=== PATIENT | male | born 1950 | race Two or more races ===

== ENCOUNTER 2016-08-22 04:42 | Inpatient (IN) | payer MEDICARE, BC ==
[~2016-08-22] VITALS: Ht 167.6 cm; Wt 62.1 kg
[2016-08-22] VITALS (9 sets, daily range): BP systolic 111–129; BP diastolic 52–71
[2016-08-22] MEDS ORDERED: ADDERALL 5 MG TA5 MG ORAL (05:00)
[2016-08-22] MEDS ORDERED: ASPIRIN81 MG ORAL (05:00)
[2016-08-22] MEDS ORDERED: ANDROGEL1.25 GM TD (05:00)
[2016-08-22] MEDS ORDERED: PLAVIX75 MG ORAL (05:00)
[2016-08-22] MEDS ORDERED: AMBIEN5 MG ORAL (05:00)
[2016-08-22] MEDS ORDERED: LAMICTAL25 MG ORAL (05:00)
[2016-08-22 05:15] LABS: BASOPHILS % (AUTO) 0.4 % (0.0-2.0); EOSINOPHILS % (AUTO) 0.6 % (0.0-3.0); LYMPHOCYTES % (AUTO) 11.8 % (20.0-45.0); MEAN CORPUSCULAR HEMOGLOBIN 32.4 PG (27.0-31.0); MEAN CORPUSCULAR HGB CONC 33.6 G/DL (32.0-36.0); MEAN CORPUSCULAR VOLUME 97 FL (80-99); MEAN PLATELET VOLUME 10.2 FL (6.5-10.1); MONOCYTES % (AUTO) 2.8 % (1.0-10.0); NEUTROPHILS % (AUTO) 84.4 % (45.0-75.0); PLATELET COUNT 225 K/UL (150-450); RED BLOOD COUNT 5.88 M/UL (4.70-6.10); RED CELL DISTRIBUTION WIDTH 12.3 % (11.6-14.8); WHITE BLOOD COUNT 12.4 K/UL (4.8-10.8)
[2016-08-22] MEDS ORDERED: Mylanta II UD 30ml ORAL ONE (05:15)
[2016-08-22] MEDS ORDERED: Famotidine 20 MG/ 2ML VIAL IVP ONE (05:15)
[2016-08-22] MEDS ORDERED: Dicyclomine HCl 10mg/5ml oral soln ORAL ONE (05:15)
[2016-08-22] MEDS ORDERED: Lidocaine 2% Visc 15ml soln ORAL ONE (05:15)
[2016-08-22 05:26] LABS: ALBUMIN/GLOBULIN RATIO 1.5 (1.0-2.7); CALCIUM 9.6 mg/dL (8.6-10.2); CREATININE 1.3 mg/dL (0.7-1.2); GLOMERULAR FILTRATION RATE 55.1 mL/min (>60); POTASSIUM 3.8 mEQ/L (3.4-4.9); TOTAL PROTEIN 7.4 g/dL (6.6-8.7); TROPONIN I < 0.30 ng/mL (<=0.30)
[2016-08-22 05:36] LABS: CKMB 4.6 ng/mL (< 6.7)
[2016-08-22] MEDS ORDERED: Morphine Sulfate 4mg/ml Inj IVP ONE (06:00)
--- NOTE | 2016-08-22 06:34 | Emergency Room Report ---
History of Present Illness General Chief Complaint: Abdominal Pain Source: Patient (RAQUEL ALVAREZ M.D.) Present Illness HPI 66-year-old male presents ED for evaluation. Patient states since last night he been having abdominal pain with vomiting. Pain is epigastric, 10 out of 10, sharp. Nonradiating. Notes multiple episodes of vomiting. Denies chest pain or shortness of breath. Denies fevers or chills. Patient states he guarded taking Zyrtec 2 days ago for treatment of an allergic reaction. Was taking niacin for skin cancer and developed an allergic reaction to the niacin. No other aggravating relieving factors. Denies any other associated symptom (RAQUEL ALVAREZ M.D.) Allergies: Coded Allergies: PENICILLINS (Verified Allergy, Unknown, 08/22/16) Patient History Past Medical History: CVA/TIA Past Surgical History: none Pertinent Family History: none Social History: Denies: alcohol use, drug use, smoking Immunizations: UTD Reviewed Nursing Documentation: PMH: Agreed, PSxH: Agreed (RAQUEL ALVAREZ M.D.) Nursing Documentation-PMH Hx Cerebrovascular Accident: Yes - STROKE 12 YEARS AGO (RAQUEL ALVAREZ M.D.) Review of Systems All Other Systems: negative except mentioned in HPI (RAQUEL ALVAREZ M.D.) Physical Exam Vital Signs Date Time Temp Pulse Resp B/P Pulse Ox O2 Delivery O2 Flow Rate FiO2 08/22/16 04:47 96.4 92 18 143/78 100 08/22/16 05:28 Room Air Sp02 EP Interpretation: reviewed, normal General Appearance: no apparent distress, alert, GCS 15, non-toxic Head: normocephalic, atraumatic Eyes: bilateral eye PERRL, bilateral eye normal inspection ENT: hearing grossly normal, normal pharynx, no angioedema, normal voice Neck: full range of motion, supple/symm/no masses Respiratory: chest non-tender, lungs clear, normal breath sounds, speaking full sentences Cardiovascular #1: regular rate, rhythm, no edema Cardiovascular #2: 2+ carotid (R), 2+ carotid (L), 2+ radial (R), 2+ radial (L) , 2+ dorsalis pedis (R), 2+ dorsalis pedis (L) Gastrointestinal: normal bowel sounds, soft, non-distended, no guarding, no rebound, tenderness - epigastric Rectal: deferred Genitourinary: normal inspection, no CVA tenderness Musculoskeletal: back normal, gait/station normal, normal range of motion, non- tender Neurologic: alert, oriented x3, responsive, motor strength/tone normal, sensory intact, speech normal Psychiatric: judgement/insight normal, memory normal, mood/affect normal, no suicidal/homicidal ideation Reflexes: 3+ bicep (R), 3+ bicep (L), 3+ tricep (R), 3+ tricep (L), 3+ knee (R) , 3+ knee (L) Skin: normal color, no rash, warm/dry, well hydrated Lymphatic: no adenopathy (RAQUEL ALVAREZ M.D.) Medical Decision Making Diagnostic Impression: Primary Impression: Abdominal pain Qualified Codes: R10.13 - Epigastric pain Additional Impressions: Status post CVA History of mitral valve prosthesis Labs Test 08/22/16 05:03 White Blood Count 12.4 K/UL (4.8-10.8) Red Blood Count 5.88 M/UL (4.70-6.10) Hemoglobin 19.0 G/DL (14.2-18.0) Hematocrit 56.8 % (42.0-52.0) Mean Corpuscular Volume 97 FL (80-99) Mean Corpuscular Hemoglobin 32.4 PG (27.0-31.0) Mean Corpuscular Hemoglobin Concent 33.6 G/DL (32.0-36.0) Red Cell Distribution Width 12.3 % (11.6-14.8) Platelet Count 225 K/UL (150-450) Mean Platelet Volume 10.2 FL (6.5-10.1) Neutrophils (%) (Auto) 84.4 % (45.0-75.0) Lymphocytes (%) (Auto) 11.8 % (20.0-45.0) Monocytes (%) (Auto) 2.8 % (1.0-10.0) Eosinophils (%) (Auto) 0.6 % (0.0-3.0) Basophils (%) (Auto) 0.4 % (0.0-2.0) Sodium Level 141 mEQ/L (135-145) Potassium Level 3.8 mEQ/L (3.4-4.9) Chloride Level 100 mEQ/L (98-107) Carbon Dioxide Level 24 mEQ/L (20-30) Anion Gap 17 (5-15) Blood Urea Nitrogen 31 mg/dL (7-23) Creatinine 1.3 mg/dL (0.7-1.2) Estimat Glomerular Filtration Rate 55.1 mL/min (>60) Glucose Level 145 mg/dL (74-106) Calcium Level 9.6 mg/dL (8.6-10.2) Total Bilirubin 0.6 mg/dL (0.0-1.2) Aspartate Amino Transf (AST/SGOT) 31 U/L (5-40) Alanine Aminotransferase (ALT/SGPT) 30 U/L (3-41) Alkaline Phosphatase 79 U/L (40-129) Creatine Kinase MB 4.6 ng/mL (< 6.7) Troponin I < 0.30 ng/mL (<=0.30) Total Protein 7.4 g/dL (6.6-8.7) Albumin 4.5 g/dL (3.5-5.2) Globulin 2.9 g/dL Albumin/Globulin Ratio 1.5 (1.0-2.7) Lipase 38 U/L (< 60) (RAQUEL ALVAREZ M.D.) ER Course Please see note by Dr. Alvarez. The patient is examined after 4 mg of morphine and 1 L of fluid. He also received a GI cocktail and Pepcid IV. A CT scan performed and is unremarkable for determining the basis of this pain. He complains about 10/10 pain that is constant and burning in the epigastric right now. CT basically negative to diagnose etiology of pain. Patient with h/o CVA and plavix and aspirin given in ED. Post mitral valve prosthesis. Consider embolic phenomenon. Based on the fact that his white count is high, he is extremely dehydrated and the pain is severe despite aggressive treatment the patient will be admitted to the hospital. Pain at 15:35 is 7/10. Repeat dilaudid. Admit med Dr. Nair. (Wayne Mcgill M.D.) EKG Diagnostic Results Rate: normal Rhythm: NSR ST Segments: no acute changes ASA given to the pt in ED: No (RAQUEL ALVAREZ M.D.) Rhythm Strip Diag. Results EP Interpretation: yes Rhythm: NSR, no PVC's, no ectopy (RAQUEL ALVRAEZ M.D.) CT/MRI/US Diagnostic Results CT/MRI/US Diagnostic Results : Imaging Test Ordered: abd and pelvis Impression Impression: No acute abdominal process. Multiple bilateral renal cysts, some large Other findings as noted, including bilateral basilar pulmonary parenchymal atelectasis, mitral valve prosthesis. The above findings agree with the preliminary interpretation provided by Dr. Lozano 17 x 14 mm pleural-based opacity in the right costophrenic sulcus. Most likely some focal atelectasis, consolidation, or chronic pleural thickening. Doubt but cannot completely exclude neoplasm, and followup imaging in 6 months is recommended (Wayne Mcgill M.D.) Last Vital Signs Date Time Temp Pulse Resp B/P Pulse Ox O2 Delivery O2 Flow Rate FiO2 08/22/16 05:28 97.3 62 18 129/71 100 Room Air (RAQUEL ALVAREZ M.D.) Last Vital Signs Date Time Temp Pulse Resp B/P Pulse Ox O2 Delivery O2 Flow Rate FiO2 08/22/16 15:29 97.1 65 16 118/65 100 Room Air Status: improved (Wayne Mcgill M.D.) Disposition: ADMITTED INPATIENT Condition: Serious Referrals: NON PHYSICIAN (PCP) RAQUEL ALVAREZ M.D. Aug 22, 2016 06:34 Wayne Mcgill M.D. Aug 22, 2016 07:33
[2016-08-22 07:30] LABS: APPEARANCE,URINE CLEAR; KETONES,URINE 2+ (NEGATIVE); LEUKOCYTE ESTERASE ,URINE NEGATIVE (NEGATIVE); NITRITE,URINE NEGATIVE (NEGATIVE); PH,URINE 6 (4.5-8.0); PROTEIN,URINE NEGATIVE (NEGATIVE); UROBILINOGEN,URINE NORMAL MG/DL (0.0-1.0)
[2016-08-22] MEDS ORDERED: fentaNYL 100 mcg/2 mL IV ONE (07:30)
[2016-08-22] MEDS ORDERED: Pantoprazole Inj IVP ONE (07:30)
[2016-08-22] MEDS ORDERED: Aspirin Baby 81mg ORAL ONE (07:45)
--- NOTE | 2016-08-22 08:29 | Diagnostic Imaging Report ---
Clinical Indication: Abdominal pain Technique: No oral contrast utilized, per emergency room physician request IV administration nonionic contrast. Venous phase spiral acquisition obtained through the abdomen and pelvis. Multiplanar reconstructions were generated. Total dose length product 671 mGycm. CTDIvol(s) 14 mGy Comparison: None Findings: Lack of enteric contrast limits assessment of the GI tract. The appendix is not definitely visualized. No definite evidence of acute appendicitis. No evidence of diverticulosis or diverticulitis. No small bowel distention. No free or loculated intraperitoneal air or fluid. The distal esophagus, stomach, duodenum are unremarkable. The liver, gallbladder, bile ducts, pancreas, spleen, adrenals are unremarkable. The kidneys demonstrate multiple cysts bilaterally. The largest of these comes off of the right kidney and measures 11 cm long axis dimension. No renal or ureteral calculi. No hydronephrosis or hydroureter no retroperitoneal or mesenteric mass or adenopathy. No pelvic mass or adenopathy. The included lung bases demonstrate posterior dependent atelectatic changes. There is a 17 x 14 mm pleural-based opacity in the right costophrenic sulcus. There is evidence of a mitral valve prosthesis. Impression: No acute abdominal process. Multiple bilateral renal cysts, some large Other findings as noted, including bilateral basilar pulmonary parenchymal atelectasis, mitral valve prosthesis. The above findings agree with the preliminary interpretation provided by Dr. Lozano 17 x 14 mm pleural-based opacity in the right costophrenic sulcus. Most likely some focal atelectasis, consolidation, or chronic pleural thickening. Doubt but cannot completely exclude neoplasm, and followup imaging in 6 months is recommended This was not described in the prior report, but was phoned to Dr. Mcgill in the emergency room at the time of interpretation The CT scanner at [facility] is accredited by the [employer] and the scans are performed using protocols designed to limit radiation exposure to as low as reasonably achievable to attain images of sufficient resolution adequate for diagnostic evaluation.
[2016-08-22] MEDS ORDERED: Mylanta II UD 30ml ORAL PRN (08:30)
[2016-08-22] MEDS ORDERED: HYDROmorphone 1mg/ml Carpuject IVP ONE ×3 (08:30→15:45)
[2016-08-22] MEDS ORDERED: Nitroglycerin Subl 0.4mg tab (Bottle Of 25) SL PRN (08:30)
[2016-08-22] MEDS ORDERED: Miralax 17gm pkt ORAL PRN (08:30)
[2016-08-22] MEDS ORDERED: Morphine Sulfate 2mg/ml Inj IVP PRN (08:30)
--- NOTE | 2016-08-22 15:01 | Diagnostic Imaging Report ---
Indication: Abdominal pain and vomiting Technique: Fofana-scale and duplex images of the upper abdomen were obtained Comparison: Reference made to CT scan earlier the same day Findings: . Gallbladder demonstrates gallstones. Note that these are occult on CT . Sonographic Martell's sign is negative. Common bile duct measures 5 mm in diameter. No intrahepatic biliary ductal dilatation. Liver demonstrates normal echogenicity, no focal abnormality. Portal vein and hepatic veins are patent.. Pancreas is unremarkable. Spleen is unremarkable. Left kidney measures 10.2 cm in length. Right kidney measures 13.8 cm length. Both kidneys demonstrate normal echogenicity. There is no hydronephrosis. The right kidney demonstrates multiple cysts, many large, the largest measuring 12 cm long axis dimension. The left kidney also demonstrates multiple cysts, measuring up to 5.5 cm in diameter.. . Non-aneurysmal abdominal aorta. Impression: Cholelithiasis, occult on recent CT. Negative for dilated ducts Bilateral renal cysts, several large on the right, also described on recent CT
[2016-08-22] MEDS: D5 1/2NS 1,000 ML IV SCH (16:58)
--- NOTE | 2016-08-22 17:35 | History and Physical ---
History of Present Illness General Date patient seen: Aug 22, 2016 Reason for Hospitalization: Abdominal Pain Present Illness HPI 66-year-old male presents to ED with CC of abdominal pain with vomiting. Pain is epigastric, 10 out of 10, sharp. Nonradiating. He was also vomiting in ER. He was found to be dehydrated. therefore he is admitted for further work up. Allergies: Coded Allergies: PENICILLINS (Verified Allergy, Unknown, 08/22/16) Medication History Scheduled Amphet Asp/Amphet/D-Amphet (Adderall 5 Mg Tablet), 5 MG ORAL DAILY, (Reported) Aspirin* (Aspirin*), 81 MG ORAL DAILY, (Reported) Clopidogrel Bisulfate* (Plavix*), 75 MG ORAL DAILY, (Reported) Lamotrigine* (Lamictal*), 25 MG ORAL DAILY, (Reported) Scheduled PRN Zolpidem Tartrate* (Ambien*), 5 MG ORAL BEDTIME PRN for Insomnia, (Reported) Miscellaneous Medications Testosterone (Androgel), 1.25 GM TD, (Reported) Patient History Healthcare decision maker Resuscitation status Advanced Directive on File Past Medical/Surgical History Past Medical/Surgical History: (1) History of CVA (cerebrovascular accident) Review of Systems All Other Systems: negative except mentioned in HPI Physical Exam Lines, tubes and drains: peripheral, central line Neck: non-tender, normal alignment Respiratory/Chest: chest wall non-tender, lungs clear Breasts: no masses Cardiovascular/Chest: normal peripheral pulses Abdomen: normal bowel sounds, non tender Genitourinary/Rectal: normal genital exam, normal rectal exam Extremities: normal range of motion, normal inspection Skin Exam: normal pigmentation Last 24 Hour Vital Signs Date Time Temp Pulse Resp B/P Pulse Ox O2 Delivery O2 Flow Rate FiO2 08/22/16 16:58 97.7 72 19 112/68 94 Room Air 08/22/16 15:57 97.1 65 16 118/65 100 Room Air 08/22/16 15:29 97.1 65 16 118/65 100 Room Air 08/22/16 15:00 97.6 58 14 118/65 99 Room Air 08/22/16 11:30 98.2 62 16 116/67 95 Room Air 08/22/16 11:00 97.6 08/22/16 09:24 98.0 08/22/16 09:22 98.0 65 18 127/63 95 Room Air 08/22/16 08:35 97.3 08/22/16 07:05 64 21 Room Air 08/22/16 07:05 98.0 64 21 117/57 98 Room Air 08/22/16 06:46 97.3 66 18 123/64 97 Room Air 08/22/16 06:46 97.3 08/22/16 05:28 97.3 62 18 129/71 100 Room Air 08/22/16 04:47 96.4 92 18 143/78 100 Intake and Output 08/21/16 08/22/16 19:00 07:00 Intake Total 1000 ml Balance 1000 ml Intake IV Total 1000 ml # Voids 1 Laboratory Tests Test 08/22/16 05:03 08/22/16 07:05 White Blood Count 12.4 K/UL (4.8-10.8) H Red Blood Count 5.88 M/UL (4.70-6.10) Hemoglobin 19.0 G/DL (14.2-18.0) *H Hematocrit 56.8 % (42.0-52.0) H Mean Corpuscular Volume 97 FL (80-99) Mean Corpuscular Hemoglobin 32.4 PG (27.0-31.0) H Mean Corpuscular Hemoglobin Concent 33.6 G/DL (32.0-36.0) Red Cell Distribution Width 12.3 % (11.6-14.8) Platelet Count 225 K/UL (150-450) Mean Platelet Volume 10.2 FL (6.5-10.1) H Neutrophils (%) (Auto) 84.4 % (45.0-75.0) H Lymphocytes (%) (Auto) 11.8 % (20.0-45.0) L Monocytes (%) (Auto) 2.8 % (1.0-10.0) Eosinophils (%) (Auto) 0.6 % (0.0-3.0) Basophils (%) (Auto) 0.4 % (0.0-2.0) Sodium Level 141 mEQ/L (135-145) Potassium Level 3.8 mEQ/L (3.4-4.9) Chloride Level 100 mEQ/L (98-107) Carbon Dioxide Level 24 mEQ/L (20-30) Anion Gap 17 (5-15) H Blood Urea Nitrogen 31 mg/dL (7-23) H Creatinine 1.3 mg/dL (0.7-1.2) H Estimat Glomerular Filtration Rate 55.1 mL/min (>60) Glucose Level 145 mg/dL (74-106) H Calcium Level 9.6 mg/dL (8.6-10.2) Total Bilirubin 0.6 mg/dL (0.0-1.2) Aspartate Amino Transf (AST/SGOT) 31 U/L (5-40) Alanine Aminotransferase (ALT/SGPT) 30 U/L (3-41) Alkaline Phosphatase 79 U/L (40-129) Creatine Kinase MB 4.6 ng/mL (< 6.7) Troponin I < 0.30 ng/mL (<=0.30) Total Protein 7.4 g/dL (6.6-8.7) Albumin 4.5 g/dL (3.5-5.2) Globulin 2.9 g/dL Albumin/Globulin Ratio 1.5 (1.0-2.7) Lipase 38 U/L (< 60) Urine Color Pale yellow Urine Appearance Clear Urine pH 6 (4.5-8.0) Urine Specific Ackerman 1.015 (1.005-1.035) Urine Protein Negative (NEGATIVE) Urine Glucose (UA) Negative (NEGATIVE) Urine Ketones 2+ (NEGATIVE) H Urine Occult Blood Negative (NEGATIVE) Urine Nitrite Negative (NEGATIVE) Urine Bilirubin Negative (NEGATIVE) Urine Urobilinogen Normal MG/DL (0.0-1.0) Urine Leukocyte Esterase Negative (NEGATIVE) Height (Feet): 5 Height (Inches): 6.00 Weight (Pounds): 137 Medications Current Medications Medications (Trade) Dose Ordered Sig/Kesha Route PRN Reason Start Time Stop Time Status Last Admin Dose Admin Acetaminophen (Tylenol) 650 mg Q4H PRN ORAL fever 08/22/16 08:30 09/21/16 08:29 Al Hydroxide/Mg Hydroxide (Mylanta II) 30 ml Q6H PRN ORAL dyspepsia 08/22/16 08:30 09/21/16 08:29 Clopidogrel Bisulfate (Plavix) 75 mg DAILY ORAL 08/22/16 09:00 09/21/16 08:59 Dextrose (Dextrose 50%) STAT PRN IV Hypoglycemia 08/22/16 08:30 09/21/16 08:29 Dextrose/Sodium Chloride (D5 0.45% NS) 1,000 ml @ 75 mls/hr [id number] IV 08/22/16 17:30 09/21/16 17:29 08/22/16 16:58 Diphenhydramine HCl (Benadryl) 25 mg Q6H PRN ORAL Itching/Pruritis 08/22/16 08:30 09/21/16 08:29 Heparin Sodium (Porcine) (Heparin 5000 units/ml) 5,000 units EVERY 12 HOURS SUBQ 08/22/16 21:00 09/21/16 20:59 Lamotrigine 25 mg 25 mg DAILY ORAL 08/22/16 09:00 09/21/16 08:59 Morphine Sulfate (Morphine Sulfate) 2 mg Q4H PRN IVP severe Pain (Pain Scale 7-10) 08/22/16 08:30 08/29/16 08:29 Nitroglycerin (Ntg) 0.4 mg Q5M X 3 DOSES PRN SL Prn Chest Pain 08/22/16 08:30 09/21/16 08:29 Ondansetron HCl (Zofran) 4 mg Q6H PRN IVP Nausea & Vomiting 08/22/16 08:30 09/21/16 08:29 Polyethylene Glycol (Miralax) 17 gm HSPRN PRN ORAL Constipation 08/22/16 08:30 09/21/16 08:29 Temazepam (Restoril) 15 mg HSPRN PRN ORAL Insomnia 08/22/16 08:30 08/29/16 08:29 Assessment/Plan Problem List: (1) Intractable nausea and vomiting ICD Codes: R11.2 - Nausea with vomiting, unspecified SNOMED: 232822322, 566090183 (2) ATN (acute tubular necrosis) ICD Codes: N17.0 - Acute kidney failure with tubular necrosis SNOMED: 24887651 (3) Abdominal pain ICD Codes: R10.9 - Unspecified abdominal pain SNOMED: 43307166 (4) History of CVA (cerebrovascular accident) ICD Codes: Z86.73 - Personal history of transient ischemic attack (TIA), and cerebral infarction without residual deficits SNOMED: 319537719 Assessment/Plan NPO IV hydration check electrolytes GI evaluation symptomatic treatment CONY AZUL Aug 22, 2016 17:35
[2016-08-22] MEDS ORDERED: Zolpidem 5mg tab ORAL PRN (21:15)
[2016-08-22] MEDS: Heparin 5000 units/ml inj SUBQ SCH (21:38)
[2016-08-23] VITALS: BP 114/66
[2016-08-23 04:00] VITALS: BP 113/63
[2016-08-23] MEDS: D5 1/2NS 1,000 ML IV SCH (06:15)
[2016-08-23 08:00] VITALS: BP 111/62
[2016-08-23 08:21] LABS: BASOPHILS % (AUTO) 0.8 % (0.0-2.0); EOSINOPHILS % (AUTO) 2.7 % (0.0-3.0); LYMPHOCYTES % (AUTO) 13.8 % (20.0-45.0); MEAN CORPUSCULAR HEMOGLOBIN 32.9 PG (27.0-31.0); MEAN CORPUSCULAR HGB CONC 34.6 G/DL (32.0-36.0); MEAN CORPUSCULAR VOLUME 95 FL (80-99); MEAN PLATELET VOLUME 10.3 FL (6.5-10.1); MONOCYTES % (AUTO) 9.1 % (1.0-10.0); NEUTROPHILS % (AUTO) 73.6 % (45.0-75.0); PLATELET COUNT 190 K/UL (150-450); RED BLOOD COUNT 5.31 M/UL (4.70-6.10); WHITE BLOOD COUNT 11.4 K/UL (4.8-10.8)
[2016-08-23] MEDS: Heparin 5000 units/ml inj SUBQ SCH (08:25)
[2016-08-23 08:32] LABS: ALANINE AMINOTRANSFERASE 19 U/L (3-41); ALBUMIN/GLOBULIN RATIO 1.3 (1.0-2.7); AMYLASE 101 U/L (10-110); ANION GAP 13 (5-15); ASPARTATE AMINO TRANSFERASE 21 U/L (5-40); CALCIUM 8.7 mg/dL (8.6-10.2); CARBON DIOXIDE 25 mEQ/L (20-30); CHLORIDE 102 mEQ/L (98-107); GLOMERULAR FILTRATION RATE > 60 mL/min (>60); HEMOLYSIS 9; LIPASE 37 U/L (< 60); POTASSIUM 4.2 mEQ/L (3.4-4.9); SODIUM 140 mEQ/L (135-145); TOTAL PROTEIN 5.5 g/dL (6.6-8.7)
[2016-08-23 12:00] VITALS: BP 123/69
[2016-08-23 16:00] VITALS: BP 118/65
--- NOTE | 2016-08-23 16:04 | Pulmonology Progress Note ---
Assessment/Plan Problems: (1) Intractable nausea and vomiting (2) ATN (acute tubular necrosis) (3) Abdominal pain (4) History of CVA (cerebrovascular accident) Assessment/Plan improving ok to dc home f/u with primary meds Subjective ROS Limited/Unobtainable: No Interval Events: tolerating regular diet Allergies: Coded Allergies: PENICILLINS (Verified Allergy, Unknown, 08/22/16) Objective Last 24 Hour Vital Signs Date Time Temp Pulse Resp B/P Pulse Ox O2 Delivery O2 Flow Rate FiO2 08/23/16 12:00 98.1 68 20 123/69 99 Room Air 08/23/16 08:00 98.1 70 20 111/62 95 Room Air 08/23/16 04:00 97.7 57 19 113/63 95 Room Air 08/23/16 00:00 98.4 70 21 114/66 94 Room Air 08/22/16 20:37 98.1 78 19 111/52 95 Room Air 08/22/16 16:58 97.7 72 19 112/68 94 Room Air Intake and Output 08/22/16 08/23/16 19:00 07:00 Intake Total 2000 ml 615 ml Output Total 17 ml Balance 2000 ml 598 ml Intake Oral 240 ml IV Total 2000 ml 375 ml Output Urine Total 2 ml Drainage Total 15 ml # Voids 2 General Appearance: WD/WN HEENT: normocephalic, atraumatic Respiratory/Chest: chest wall non-tender, lungs clear Cardiovascular: normal peripheral pulses, normal rate Extremities: no cyanosis, no clubbing Neurologic/Psychiatric: jordan man II-XII grossly normal, abnormal gait Laboratory Tests 08/23/16 07:15: White Blood Count 11.4H, Red Blood Count 5.31, Hemoglobin 17.5, Hematocrit 50.5 , Mean Corpuscular Volume 95, Mean Corpuscular Hemoglobin 32.9H, Mean Corpuscular Hemoglobin Concent 34.6, Red Cell Distribution Width 12.0, Platelet Count 190, Mean Platelet Volume 10.3H, Neutrophils (%) (Auto) 73.6, Lymphocytes (%) (Auto) 13.8L, Monocytes (%) (Auto) 9.1, Eosinophils (%) (Auto) 2.7, Basophils (%) (Auto) 0.8, Activated Partial Thromboplast Time 29, Sodium Level 140, Potassium Level 4.2, Chloride Level 102, Carbon Dioxide Level 25, Anion Gap 13, Blood Urea Nitrogen 13, Creatinine 1.0, Estimat Glomerular Filtration Rate > 60, Glucose Level 112H, Calcium Level 8.7, Total Bilirubin 0.8, Aspartate Amino Transf (AST/SGOT) 21, Alanine Aminotransferase (ALT/SGPT) 19, Alkaline Phosphatase 57, Total Protein 5.5L, Albumin 3.2L, Globulin 2.3, Albumin /Globulin Ratio 1.3, Amylase Level 101, Lipase 37 Current Medications Medications (Trade) Dose Ordered Sig/Kesha Route PRN Reason Start Time Stop Time Status Last Admin Dose Admin Acetaminophen (Tylenol) 650 mg Q4H PRN ORAL fever 08/22/16 08:30 09/21/16 08:29 Al Hydroxide/Mg Hydroxide (Mylanta II) 30 ml Q6H PRN ORAL dyspepsia 08/22/16 08:30 09/21/16 08:29 Clopidogrel Bisulfate (Plavix) 75 mg DAILY ORAL 08/22/16 09:00 09/21/16 08:59 08/23/16 08:23 Dextrose (Dextrose 50%) STAT PRN IV Hypoglycemia 08/22/16 08:30 09/21/16 08:29 Dextrose/Sodium Chloride (D5 0.45% NS) 1,000 ml @ 75 mls/hr [id number] IV 08/22/16 17:30 09/21/16 17:29 08/23/16 06:15 Diphenhydramine HCl (Benadryl) 25 mg Q6H PRN ORAL Itching/Pruritis 08/22/16 08:30 09/21/16 08:29 Heparin Sodium (Porcine) (Heparin 5000 units/ml) 5,000 units EVERY 12 HOURS SUBQ 08/22/16 21:00 09/21/16 20:59 08/23/16 08:25 Lamotrigine 25 mg 25 mg DAILY ORAL 08/22/16 09:00 09/21/16 08:59 08/23/16 08:22 Morphine Sulfate (Morphine Sulfate) 2 mg Q4H PRN IVP severe Pain (Pain Scale 7-10) 08/22/16 08:30 08/29/16 08:29 Nitroglycerin (Ntg) 0.4 mg Q5M X 3 DOSES PRN SL Prn Chest Pain 08/22/16 08:30 09/21/16 08:29 Ondansetron HCl (Zofran) 4 mg Q6H PRN IVP Nausea & Vomiting 08/22/16 08:30 09/21/16 08:29 Polyethylene Glycol (Miralax) 17 gm HSPRN PRN ORAL Constipation 08/22/16 08:30 09/21/16 08:29 Zolpidem Tartrate (Ambien) 5 mg HSPRN PRN ORAL Insomnia 08/22/16 21:15 09/21/16 21:14 08/22/16 21:33 CONY AZUL Aug 23, 2016 16:04
--- NOTE | 2016-08-23 21:59 | Consultation ---
DATE OF CONSULTATION: 08/23/2016 CONSULTING PHYSICIAN: Aaron Hernandez M.D. REFERRING PHYSICIAN: Leatha Nair M.D. CHIEF COMPLAINT: Abdominal pain. HISTORY OF PRESENT ILLNESS: This is a pleasant 66-year-old male who is having significant GI problems, last colonoscopy about two years ago, and yesterday or the day before had a store and later he started having abdominal pain. Abdominal pain was going from the left to right across in the midline, associated with nausea. Actually, the patient vomited and got scared and came to the hospital. The patient denies any prior history of these symptoms before. Denies any alcohol usage. Denies any hematemesis. No melena. No hematochezia. No diarrhea. PAST MEDICAL HISTORY: 1. History of CVA in 2001. 2. History of mitral valve replacement in 2001. ALLERGIES: To penicillin. MEDICATIONS: Please see medication reconciliation list. SOCIAL HISTORY: The patient denies any tobacco, alcohol, or drug use. FAMILY HISTORY: Noncontributory. PAST SURGICAL HISTORY: Mitral valve replacement in 2001. REVIEW OF SYSTEMS: A 10-point review of systems was performed and pertinent positives in history of present illness. PHYSICAL EXAMINATION: GENERAL: The patient is well-developed male, in no acute distress. VITAL SIGNS: Temperature is 97.7 degrees, pulse is 67, respirations 19, and blood pressure is 113/63. HEENT: Normocephalic and atraumatic. Sclerae anicteric. NECK: Supple. No evidence of lymphadenopathy. CARDIOVASCULAR: Regular rhythm. Plus S1 and S2. LUNGS: Clear to auscultation bilaterally. ABDOMEN: Soft and nontender. No rebound. No guarding. No peritoneal signs. EXTREMITIES: No cyanosis. No edema. LABORATORY DATA: White count and platelet count is 190,000. Chem-7 is grossly normal except for glucose of 112. Liver function tests normal. IMAGING STUDY: The patient had an abdominal ultrasound, which showed gallstones. Otherwise, no dilated ducts. CT of the abdomen and pelvis did not show any acute intra-abdominal process. ASSESSMENT AND PLAN: This is a 66-year-old male with acute onset of nausea, vomiting, and abdominal pain, which has been completely resolved today, most probably related to the meal that he had or salad that he had. At this time, the patient is asymptomatic. So, we are going to advance his diet. There is no significant leukocytosis. No significant abdominal dysfunction. No acute finding on the ultrasound and CT. The patient had gallstones without any acute cholecystitis. So, plan would be to advance his diet. Possibly discharge him today if he is stable. Follow up as an outpatient. I want to thank Dr. Nair for this kind referral. Aaron Hernandez M.D. DR: CARLOS JOB#: [id number] CC: Leatha Nair M.D.; Fax#: [phone]
--- NOTE | 2016-08-24 20:56 | Discharge Summary ---
Discharge Summary Hospital Course Date of Admission Aug 22, 2016 at 08:01 Date of Discharge Aug 23, 2016 at 16:40 Admitting Diagnosis dehydration HPI Eder Ghosh is a 66 year old male who was admitted on Aug 22, 2016 at 08: 01 for Dehydration Hospital Course [id number] Discharge Discharge Disposition Patient was discharged to Home (01) Discharge Diagnoses: Ml Younger NP Aug 24, 2016 20:56
--- NOTE | 2016-08-25 02:48 | Discharge Summary 2 SIG ---
DATE OF ADMISSION: 08/22/2016 DATE OF DISCHARGE: 08/23/2016 MINCING MACHINE OPERATOR: Aaron Hernandez M.D. BRIEF HOSPITAL COURSE: The patient is a 66-year-old male, who presented to ED complaining of abdominal pain with vomiting. Pain was described to be epigastric, 10/10, sharp and nonradiating. He was also vomiting when he was at ED. He was found to be dehydrated and was admitted for further workup. He was initially placed on NPO and was given IV hydration and symptomatic treatment with Zofran. Dr. Hernandez was consulted. CAT scan of the abdomen and pelvis did not show any acute intra-abdominal process. Abdominal pain, nausea and vomiting has completely resolved most probably secondary to meal that the patient had eaten. The patient was asymptomatic and diet was advanced. No significant abdominal dysfunction. No acute findings on ultrasound and CT. The patient has gallstones without any acute cholecystitis. The patient was then cleared for discharge. Advised to follow up as outpatient. Due to rapid unexpected improvement in the patient's symptoms, the patient was discharged home. FINAL DIAGNOSES: 1. Intractable nausea and vomiting. 2. Abdominal pain. 3. Acute tubular necrosis. 4. Old cerebrovascular accident. Leatha Nair M.D. I have been assigned to dictate discharge summary on this account and I was not involved in the patient's management. Ml Younger N.P. DR: DIAMANTE JOB#: [id number] CC:
== END 2016-08-23 16:40 | disposition home or self-care (01) | DRG 640 ==
LOC: EMR 05:20 → 3E 08:01 → EDBEDREQ 08:08 → 3E 16:42
DX: E86.0 Dehydration (principal); N17.0 Acute kidney failure with tubular necrosis; R10.13 Epigastric pain; R11.2 Nausea with vomiting, unspecified; Z95.2 Presence of prosthetic heart valve; Z88.0 Allergy status to penicillin; Z86.73 Personal history of transient ischemic attack (TIA), and cerebral infarction without residual deficits
CPT/HCPCS: 36415; 74177; 76700; 80053; 81003; 82150; 82553; 83690; 84484; 85025; 85730; J2405